=== PATIENT | female | born 1955 | race Caucasian/White ===

== ENCOUNTER 2023-12-15 15:41 | Emergency (ER) | payer MEDICARE ==
[~2023-12-15] VITALS: Ht 170.2 cm; Wt 65.2 kg
[2023-12-15 15:42] VITALS: TEMP 96.6
[2023-12-15] MEDS ORDERED: SUMA100T2 PO (19:30)
[2023-12-15] MEDS ORDERED: MIDO2.5T PO (19:30)
[2023-12-15] MEDS: PERCOCET 5MG/325MG TAB PO ONE (19:43)
[2023-12-15 20:24] VITALS: BP 151/64; O2SAT 100
[2023-12-15] MEDS: fentaNYL 100 MCG/2 ML INJECTION IV ONE (20:34)
[2023-12-15] MEDS: OXYCODONE/APAP 5MG/325MG(HOME DOSE PACK) PO ONE (21:16)
== END 2023-12-15 21:25 | disposition home or self-care (01) ==
LOC: M ED 15:41
DX: S52.321A Displaced transverse fracture of shaft of right radius, initial encounter for closed fracture (principal); S52.611A Displaced fracture of right ulna styloid process, initial encounter for closed fracture; W19.XXXA Unspecified fall, initial encounter; Y92.009 Unspecified place in unspecified non-institutional (private) residence as the place of occurrence of the external cause; Y93.9 Activity, unspecified; Y99.9 Unspecified external cause status
CPT/HCPCS: 25605; 73090; 73100; 73110; 99284; J3010